=== PATIENT | female | born 1980 | race Caucasian/White ===

== ENCOUNTER 2016-11-26 17:31 | Emergency (ER) | payer OTHER ==
[2016-11-26 20:04] LABS: BASOPHILS 0.1 %; BASOPHILS ABSOLUTE 0.01 10/3/uL (0.0-0.16); EOSINOPHILS 2.3 %; ER CBC TAT 0 Hrs 05 Mins; IMMATURE GRANULOCYTES 0.2 %; IMMATURE GRANULOCYTES ABSOLUTE 0.02 10/3/uL (0.0-0.11); LYMPHOCYTES 17.9 %; LYMPHOCYTES ABSOLUTE 1.56 10/3/uL (0.67-4.30); MEAN CORPUS HGB CONC 33.3 g/dL (32.0-36.0); MEAN CORPUSCULAR HEMOGLOB 29.3 pg (26.0-34.0); MEAN PLATELET VOLUME 10.1 fL (9.2-13.0); MONOCYTES 8.3 %; MONOCYTES ABSOLUTE 0.72 10/3/uL (0.21-1.20); NEUTROPHILS 71.2 %; NEUTROPHILS ABSOLUTE 6.21 10/3/uL (2.02-8.40); RBC DISTRIBUTION WIDTH 14.3 % (12.0-16.0); RED CELL COUNT 3.82 10/6/uL (4.0-5.6); WHITE BLOOD CELLS 8.7 10/3/uL (4.5-10.5)
[2016-11-26 20:06] LABS: HEMATOCRIT 33.6 % (36.0-48.0); HEMOGLOBIN 11.2 g/dL (12.0-16.0); MANUAL DIFF NO %; PLATELET COUNT 395 10/3/uL (150-400)
[2016-11-26 20:14] LABS: PROTIME (NOT ORD) 13.2 SEC (12.0-14.5)
[2016-11-26 20:18] LABS: A/G RATIO 1.1 (0.7-1.9); ALBUMIN 3.8 G/DL (3.5-5.0); ALKALINE PHOSPHATASE 65 U/L (45-117); BUN (BLOOD UREA NITROGEN) 13 MG/DL (6-23); CALCIUM, SERUM 9.1 MG/DL (8.5-10.4); CHLORIDE, SERUM 104 MMOL/L (96-112); CO2 (CARBON DIOXIDE) 29 MMOL/L (24-34); CREATININE 1.14 MG/DL (0.55-1.02); GFR AFRICAN AMERICAN 72 ML/MIN (>=60); GFR NON AFRICAN AMERICAN 62 ML/MIN (>=60); GLOBULIN 3.6 G/DL (2.5-4.1); GLUCOSE, SERUM 92 MG/DL (60-99); POTASSIUM, SERUM 4.4 MMOL/L (3.5-5.3); SGOT(AST) 36 U/L (5-40); SGPT(ALT) 56 U/L (5-65); SODIUM, SERUM 139 MMOL/L (135-148); TOTAL BILIRUBIN 0.6 MG/DL (0-1.2); TOTAL PROTEIN 7.4 G/DL (6.0-8.5)
== END 2016-11-26 20:59 | disposition home or self-care (01) ==
LOC: ER 17:31
PROVIDERS: Emergency Medicine
DX: S70.12XA Contusion of left thigh, initial encounter (principal); N28.9 Disorder of kidney and ureter, unspecified; I10 Essential (primary) hypertension; Z41.1 Encounter for cosmetic surgery; X58.XXXA Exposure to other specified factors, initial encounter
CPT/HCPCS: 80053; 85025; 85610; 93971; 99284